=== PATIENT | male | born 1975 | race Caucasian/White ===

== ENCOUNTER 2020-12-08 07:28 | Emergency (ER) | payer OTHER ==
[2020-12-08 07:42] VITALS: BP 175/95
--- NOTE | 2020-12-08 08:09 | ED Physician Documentation ---
History of Present Illness - Stated complaint Stated Complaint: RT ELBOW PX - Chief complaint Chief Complaint: Ext Problem - History obtained from History obtained from: Patient - Additonal information Additional information: 45-year-old man with past medical history of high blood pressure presents with right elbow pain gradual in onset last night associated with warmth and swelling. Nonradiating, no exacerbating or relieving factors.no pain with range of motion of the elbow. No sensory or motor deficits. Review of Systems Constitutional: denies: Fever Skin: reports: Other (swelling) Musculoskeletal: reports: Extremity pain, Joint pain Neurologic: denies: Focal weakness, Numbness PD PAST MEDICAL HISTORY - Past Medical History Past Medical History: Yes Cardiovascular: Hypertension, High cholesterol Respiratory: None Neuro: None Endocrine/Autoimmune: None GI: None : None HEENT: None Psych: Anxiety Musculoskeletal: Chronic back pain Derm: None - Past Surgical History Past Surgical History: No - Present Medications Home Medications: Ambulatory Orders Medication Instructions Recorded Confirmed Atorvastatin Calcium [Lipitor] 80 mg PO DAILY 08/06/15 12/08/20 FLUoxetine [PROzac] 40 mg PO DAILY 08/06/15 12/08/20 Aspirin EC [Ecotrin] 81 mg PO DAILY 12/08/20 12/08/20 Chlorthalidone 50 mg ORAL DAILY 12/08/20 12/08/20 Losartan Potassium 25 mg PO DAILY 12/08/20 12/08/20 cephALEXin [Keflex] 500 mg PO Q6H #28 12/08/20 - Allergies Allergies/Adverse Reactions: Allergies Allergy/AdvReac Type Severity Reaction Status Date / Time No Known Drug Allergies Allergy Verified 12/08/20 07:37 - Social History Does the pt smoke?: No Smoking Status: Former smoker Does the pt drink ETOH?: Yes Does the pt have substance abuse?: No - Immunizations Immunizations are current?: Yes PD ED PE NORMAL - Vitals Vital signs reviewed: Yes - General General: Alert and oriented X 3, No acute distress, Well developed/nourished - HEENT HEENT: Atraumatic, PERRL, EOMI - Derm Derm: Normal color - Extremities Extremities: No deformity, Normal ROM s pain, Other (Right olecranon bursa warm to the touch, I am mildly erythematous, with mild swelling.2+ bilateral radial pulses. Normal sensation and strength.) Results - Vitals Vitals: Vital Signs - 24 hr 05/22/21 07:39 Temperature 36.9 C Heart Rate 112 H Respiratory 18 Rate Blood Pressure 175/95 H O2 Saturation 100 Oxygen O2 Source Room air PD MEDICAL DECISION MAKING - ED course ED course: 45-year-old man presents with olecranon bursitis. Antibiotics prescribed and strict return precautions given. Patient will follow up with [facility]. Departure - Departure Disposition: Home, Self Care Clinical Impression: Bursitis Condition: Good Instructions: ED Bursitis Prescriptions: cephALEXin [Keflex] 500 mg PO Q6H #28 Comments: You were seen in the emergency department for bursitis. Please take your antibiotics as prescribed and if you do not see improvement in 48 hours then return to the emergency department daily. Please follow-up with [facility] for a wound check on Thursday or go to urgent care. Take 600 mg of ibuprofen every 6 hours as needed for pain. Keep an Nolberto wrap on the elbow to reduce swelling and elevate it.
== END 2020-12-08 08:18 | disposition home or self-care (01) ==
LOC: ED 07:28
DX: M70.21 Olecranon bursitis, right elbow (principal); I10 Essential (primary) hypertension; Z87.891 Personal history of nicotine dependence; Z79.82 Long term (current) use of aspirin
CPT/HCPCS: 99282; 99283

== ENCOUNTER 2022-05-20 08:00 | Outpatient (CLI) | payer OTHER ==
--- NOTE | 2022-05-21 05:27 | XRAY Report ---
PROCEDURE: Knee 4 View LT INDICATIONS: LEFT KNEE PAIN TECHNIQUE: 4 views of the left knee(s) were acquired. COMPARISON: None. FINDINGS: Bones: No fractures or dislocations. No suspicious bony lesions. Soft tissues: No joint effusion. No suspicious soft tissue calcifications. IMPRESSION: Normal x-ray of the left knee. If symptoms persist consider MRI. Reviewed by: Franklin Beck on 05/21/2022 5:26 AM PDT Approved by: Franklin Beck on 05/21/2022 5:26 AM PDT Station ID: [id number]
== END 2022-05-20 23:59 | disposition home or self-care (01) ==
LOC: DI.WOS 08:00
PROVIDERS: ATTEND Physician Assistant Surgical
DX: M25.562 Pain in left knee (principal)

== ENCOUNTER 2023-01-02 13:42 | Emergency (ER) | payer OTHER ==
[2023-01-02 14:09] VITALS: BP 166/98
--- NOTE | 2023-01-02 16:54 | ED Physician Documentation ---
PD HPI MHE - Stated complaint Stated Complaint: MHE - Chief complaint Chief Complaint: MHE - History obtained from History obtained from: Patient - History of Present Illness Primary symptom: Anxiety (chronic) Pain level max: 0 Pain level now: 0 Contributing factors: No: Substance abuse - ETOH, Substance abuse - drugs Similar symptoms before: Diagnosis (Chronic anxiety) - Additional information Additional information: 47-year-old male presents to the emergency department stating he has had increased anxiety over the past week. He states that this started after catching his son watching pornography on his Xbox. He states that he has a single parent. He usually takes hydroxyzine which helps. He did take it yesterday which did seem to help the anxiety but anxiety recurred today. He did not take his hydroxyzine. He does not have any chest pain, shortness of breath, palpitations. No suicidal or homicidal ideation. History of hypertension. He has a remote history of smoking, does not smoke currently. No hallucinations. He is requesting help with his anxiety. Review of Systems Constitutional: denies: Fever, Chills Nose: denies: Rhinorrhea / runny nose, Congestion Throat: denies: Sore throat Cardiac: denies: Chest pain / pressure, Palpitations Respiratory: denies: Dyspnea, Cough GI: denies: Vomiting Skin: denies: Rash Musculoskeletal: denies: Neck pain, Back pain Neurologic: denies: Headache PD PAST MEDICAL HISTORY - Past Medical History Past Medical History: Yes Cardiovascular: Hypertension, High cholesterol Respiratory: None Neuro: None Endocrine/Autoimmune: None GI: None : None HEENT: None Psych: Anxiety Musculoskeletal: Chronic back pain Derm: None - Past Surgical History Past Surgical History: No - Present Medications Home Medications: Ambulatory Orders Medication Instructions Recorded Confirmed Atorvastatin Calcium [Lipitor] 80 mg PO DAILY 08/06/15 12/08/20 FLUoxetine [PROzac] 40 mg PO DAILY 08/06/15 12/08/20 Aspirin EC [Ecotrin] 81 mg PO DAILY 12/08/20 12/08/20 Chlorthalidone 50 mg ORAL DAILY 12/08/20 12/08/20 Losartan Potassium 25 mg PO DAILY 12/08/20 12/08/20 cephALEXin [Keflex] 500 mg PO Q6H #28 12/08/20 LORazepam [Ativan] 0.5 mg PO Q8H PRN #4 tablet 01/02/23 - Allergies Allergies/Adverse Reactions: Allergies Allergy/AdvReac Type Severity Reaction Status Date / Time shellfish derived Allergy Emesis Verified 01/02/23 14:05 - Social History Does the pt smoke?: No Smoking Status: Never smoker Does the pt drink ETOH?: Yes Does the pt have substance abuse?: No - Immunizations Immunizations are current?: Yes PD ED PE NORMAL - Vitals Vital signs reviewed: Yes - General General: Alert and oriented X 3, No acute distress - HEENT HEENT: PERRL, Moist mucous membranes - Neck Neck: Supple, no meningeal sign - Cardiac Cardiac: RRR, Strong equal pulses - Respiratory Respiratory: No respiratory distress, Clear bilaterally - Abdomen Abdomen: Soft, Non tender, Non distended - Back Back: No CVA TTP, No spinal TTP - Derm Derm: Warm and dry - Extremities Extremities: No edema, No calf tenderness / cord - Neuro Neuro: Alert and oriented X 3, special needs babysitter 2-12 intact, No motor deficit, No sensory deficit, Normal speech Eye Opening: Spontaneous Motor: Obeys Commands Verbal: Oriented GCS Score: 15 - Psych Psych: Normal mood, Normal affect Results - Vitals Vitals: Vital Signs - 24 hr 01/02/23 14:00 Temperature 36.1 C L Heart Rate 95 Respiratory 18 Rate Blood Pressure 166/98 H O2 Saturation 97 Oxygen O2 Source Room air - EKG (time done) 1638 EKG releavant findings:: EKG personally interpreted by author of this note. Relevant findings are: Rate: Rate (enter#) (83) Rhythm: NSR Slemp: Normal Intervals: Normal [place] QRS: Normal Ischemia: Normal ST segments PD Medical Decision Making - ED course Complexity details: considered differential, d/w patient ED course: 47-year-old male with anxiety. He is requesting medication for home, we will prescribe a small amount of Ativan. We will have him follow-up closely with his doctor for further care. He states he was told once that he had a "blip" on his EKG. An EKG was performed here that did not show any significant clinical abnormalities. No chest pain. No shortness of breath. No suicidal or homicidal ideation. No hallucinations. We will have him follow-up with his doctor for further care. Patient counseled regarding signs and symptoms for which I believe and urgent re-evaluation would be necessary. Patient with good understanding of and agreement to plan and is comfortable going home at this time This document was made in part using voice recognition software. While efforts are made to proofread this document, sound alike and grammatical errors may occur. Departure - Departure Disposition: 01 Home, Self Care Clinical Impression: Anxiety Condition: Good Instructions: ED Stress React Follow-Up: Your,doctor in 1 week [Other] Prescriptions: LORazepam [Ativan] 0.5 mg PO Q8H PRN #4 tablet PRN Reason: Anxiety Comments: Please follow-up with your doctor for further care and further evaluation of your anxiety. [facility] [place]. Your EKG does not show any acute abnormalities today. Ativan can be an addicting substance, so we want to use the lowest dose for the shortest possible course. Do not drive or operate heavy machinery while taking this medication Crisis Line and is available to talk to someone [email or web address] is also available to chat with someone online if you prefer. There are also many resources on this website and apps for your phone to help with your mental health You can also text the word START to [phone] to chat with someome via text. Discharge Date/Time: 01/02/23 17:12
== END 2023-01-02 17:12 | disposition home or self-care (01) ==
LOC: ED 13:42
DX: F41.9 Anxiety disorder, unspecified (principal); I10 Essential (primary) hypertension
CPT/HCPCS: 93005; 99283; 99284

== ENCOUNTER 2023-04-01 11:45 | Emergency (ER) | payer OTHER ==
[2023-04-01 12:30] LABS: BASOPHILS % (AUTO) 0.5 %; EOSINOPHILS # (AUTO) 0.2 10^3/uL (0.0-0.7); EOSINOPHILS % (AUTO) 2.6 %; HCT - HEMATOCRIT 41.1 % (42.0-52.0); HGB - HEMOGLOBIN 14.2 g/dL (14.0-18.0); LYMPHOCYTES # (AUTO) 1.7 10^3/uL (1.5-3.5); LYMPHOCYTES % (AUTO) 25.3 %; MEAN CORPUSCULAR HEMOGLOBIN 29.2 pg (27.0-31.0); MEAN CORPUSCULAR HGB CONC 34.5 g/dL (32.0-36.0); MEAN CORPUSCULAR VOLUME 84.6 fL (80.0-94.0); MEAN PLATELET VOLUME 9.1 fL (7.4-11.4); MONOCYTES # (AUTO) 0.5 10^3/uL (0.0-1.0); NEUTROPHILS # (AUTO) 4.2 10^3/uL (1.5-6.6); NEUTROPHILS % (AUTO) 64.4 %; PLT - PLATELET COUNT 236 10^3/uL (130-450); RED BLOOD COUNT 4.86 10^6/uL (4.70-6.10); RED CELL DISTRIBUTION WIDTH 13.5 % (12.0-15.0); WHITE BLOOD COUNT 6.6 x10^3/uL (4.8-10.8)
[2023-04-01 12:51] LABS: TROPONIN I HIGH SENSITIVITY 3.5 ng/L (2.3-19.7)
[2023-04-01 13:00] LABS: ALBUMIN 4.8 g/dL (3.2-5.5); ALBUMIN/GLOBULIN RATIO 1.9 (1.0-2.2); BILIRUBIN,TOTAL 0.7 mg/dL (0.2-1.0); CALCIUM 10.4 mg/dL (8.5-10.3); POTASSIUM 3.5 mmol/L (3.5-4.5); TOTAL PROTEIN 7.3 g/dL (6.4-8.9)
--- NOTE | 2023-04-01 13:21 | XRAY Report ---
PROCEDURE: Chest 1 View X-Ray INDICATIONS: Chest Pain TECHNIQUE: One view of the chest was acquired. COMPARISON: None. FINDINGS: Surgical changes and devices: None. Lungs and pleura: No pleural effusions or pneumothorax. Lungs are probably clear. There is an ovoid opacity projecting in the right lung apex between the third and fourth rib arcs, probably a gown sna p. Mediastinum: Mediastinal contours appear normal. Heart size is normal. Bones and chest wall: No suspicious bony lesions. Overlying soft tissues appear unremarkable. IMPRESSION: No acute cardiopulmonary process. Please assess patient's overlying garment for possible radiodense artifact. Reviewed by: Hortensia Aragon MD on 04/01/2023 1:20 PM PDT Approved by: Hortensia Aragon MD on 04/01/2023 1:20 PM PDT Station ID: [id number]
--- NOTE | 2023-04-01 14:43 | ED Physician Documentation ---
History of Present Illness - Stated complaint Stated Complaint: CHEST TIGHTNESS - Chief complaint Chief Complaint: Cardiac - Additonal information Additional information: 47-year-old male presents to the emergency department for evaluation of intermittent chest pain. He has had this through the years but over the last several months he has found that he has it with increasing frequency. Sometimes it is associated with his anxiety and sometimes it is associated with no stress or worry at all. It is not exertional. He has no associated diaphoresis nausea or vomiting. No fevers. No cough. Patient presents is very well-appearing but quite anxious. He states he is a single parent and concerned that his health will impact the life of his son. He is a non-smoker. Does have a history of hypertension but is well controlled. No family history of sudden or early coronary artery disease or . Review of Systems Constitutional: reports: Reviewed and negative Throat: reports: Reviewed and negative Cardiac: reports: Chest pain / pressure. denies: Palpitations, Pedal edema Respiratory: reports: Reviewed and negative GI: reports: Reviewed and negative : reports: Reviewed and negative PD PAST MEDICAL HISTORY - Past Medical History Cardiovascular: Hypertension, High cholesterol Respiratory: None Neuro: None Endocrine/Autoimmune: None GI: None : None HEENT: None Psych: Anxiety Musculoskeletal: Chronic back pain Derm: None - Past Surgical History Past Surgical History: No - Present Medications Home Medications: Ambulatory Orders Medication Instructions Recorded Confirmed Atorvastatin Calcium [Lipitor] 80 mg PO DAILY 08/06/15 12/08/20 FLUoxetine [PROzac] 40 mg PO DAILY 08/06/15 12/08/20 Aspirin EC [Ecotrin] 81 mg PO DAILY 12/08/20 12/08/20 Chlorthalidone 50 mg ORAL DAILY 12/08/20 12/08/20 Losartan Potassium 25 mg PO DAILY 12/08/20 12/08/20 cephALEXin [Keflex] 500 mg PO Q6H #28 12/08/20 LORazepam [Ativan] 0.5 mg PO Q8H PRN #4 tablet 01/02/23 - Allergies Allergies/Adverse Reactions: Allergies Allergy/AdvReac Type Severity Reaction Status Date / Time shellfish derived Allergy Emesis Verified 04/01/23 11:56 - Social History Does the pt smoke?: No Smoking Status: Never smoker Does the pt drink ETOH?: Yes Does the pt have substance abuse?: No - Immunizations Immunizations are current?: Yes PD ED PE NORMAL - General General: Alert and oriented X 3, No acute distress - HEENT HEENT: PERRL - Cardiac Cardiac: RRR, No murmur - Respiratory Respiratory: Clear bilaterally - Abdomen Abdomen: Normal bowel sounds, Soft, Non tender, Non distended Results - Vitals Vitals: Vital Signs - 24 hr 04/01/23 11:56 Temperature 36.5 C Heart Rate 78 Respiratory 16 Rate Blood Pressure 150/90 H O2 Saturation 96 Oxygen O2 Source Room air - EKG (time done) 1201 EKG releavant findings:: EKG personally interpreted by author of this note. Relevant findings are: Rate: Rate (enter#) (76) Rhythm: NSR Ethel: Normal Intervals: Normal GA. No: Prolonged QT QRS: Normal Ischemia: Normal ST segments Compare to prior EKG: Old EKG unavailable Computer interpretation: Agree with computer - Labs Labs: Laboratory Tests 04/01/23 04/01/23 12:25 12:25 WBC 6.6 RBC 4.86 Hgb 14.2 Hct 41.1 L MCV 84.6 MCH 29.2 MCHC 34.5 RDW 13.5 Plt Count 236 MPV 9.1 Neut # (Auto) 4.2 Lymph # (Auto) 1.7 Mcduffie # (Auto) 0.5 Eos # (Auto) 0.2 Baso # (Auto) 0.0 Absolute Nucleated RBC 0.00 Nucleated RBC % 0.0 Sodium 139 Potassium 3.5 Chloride 101 Carbon Dioxide 32 Anion Gap 6.0 BUN 14 Creatinine 1.0 Estimated GFR (MDRD) 81 L Glucose 101 Calcium 10.4 H Total Bilirubin 0.7 AST 20 ALT 31 Alkaline Phosphatase 88 Troponin I High Sens 3.5 Total Protein 7.3 Albumin 4.8 Globulin 2.5 Albumin/Globulin Ratio 1.9 Lipase 20 - Rads (name of study) cxr Relevant Findings:: Final report received (We will just get me head all that is fine. Is why just opened it no acute cardiopulmonary process) PD Medical Decision Making - ED course Complexity details: reviewed results, re-evaluated patient, d/w patient ED course: Well-appearing 47-year-old male presents emergency department for evaluation of intermittent chest pain that began several years ago but is worsened over the last several months with anxiety. It is not exertional. Does not have typical fevers such as radiation, exertional angina nausea or diaphoresis. He does have a history of hypertension though relatively well controlled. No tobacco use. EKG today is entirely nonischemic. Chest x-ray was without acute focal findings suggest pneumonia, pneumothorax, pleural effusion or cardiomegaly. CBC and electrolytes including a troponin as interpreted by myself are also essentially unremarkable with no causality found to associate with chest pain. Clinically patient is PERC negative therefore low suspicion for PE. Given age and otherwise limited risk factors, normal troponin and EKG low suspicion for ACS. I suspect the patient has significant anxiety contributing to the symptoms. He is encouraged to follow closely with his PCP. The usual emergent return p recautions for worsening symptoms was discussed. Departure - Departure Disposition: 01 Home, Self Care Clinical Impression: Anxiety Chest pain Qualifiers: Chest pain type: unspecified Qualified Code(s): R07.9 - Chest pain, unspecified Condition: Stable Follow-Up: MARIA ALEJANDRA GODDARD MD [Primary Care Provider] - Comments: Clarence swartz are seen today in the emergency department for evaluation of intermittent chest pain that you have had for at least the last several months. You also have a history of anxiety and increasing stresses over the last year. Your EKG and chest x-ray today in the emergency department are normal without any concerning findings to suggest a heart attack, pneumonia, pneumothorax, pleural effusion. Your labs are also entirely normal. I do suspect that most of the cause of the chest pain is related to your anxiety. However you should discuss this ED visit with your primary care doctor. They may elect to refer you for a stress test which would be the definitive test to rule out coronary artery disease as a cause for your intermittent symptoms.
[2023-04-01 14:57] VITALS: BP 148/65; O2SAT 98
== END 2023-04-01 14:49 | disposition home or self-care (01) ==
LOC: ED 11:45
DX: R07.9 Chest pain, unspecified (principal); F41.9 Anxiety disorder, unspecified; I10 Essential (primary) hypertension; E78.00 Pure hypercholesterolemia, unspecified; Z79.899 Other long term (current) drug therapy; Z79.82 Long term (current) use of aspirin
CPT/HCPCS: 36415; 80053; 83690; 84484; 85025; 93005; 99283; 99284